=== PATIENT | female | born 1940 | race Caucasian/White ===

== ENCOUNTER 2016-04-16 11:45 | Inpatient (IN) | payer MEDICARE ==
[~2016-04-16] VITALS: Ht 160 cm; Wt 100.7 kg
--- NOTE | 2016-04-16 13:44 | PHYS DOC ---
Past Medical History Past Medical History: Cancer, High Cholesterol, Hypertension, Other Additional Past Medical Histor: endometriosis, uterine cancer Past Surgical History: Cholecystectomy, Hysterectomy, Knee Replacement, Other Additional Past Surgical Histo: gastric sleeve, left breast cyst Alcohol Use: None Drug Use: None Adult General Chief Complaint Chief Complaint: LOWER EXTREMITY SWELLING [facility] This is a 75-year-old female who presents with a wound to her right lower tibial area that she states happened on Tuesday after her discharge her head into the leg. She was seen by her primary care doctor and given an injection of lincomycin as well as Keflex 500 mg 4 times a day but the patient states the redness and swelling and pain has worsened despite taking this. She went back in her primary care doctor and the primary care doctor advised her to come into the ER for IV antibiotics. She denies any other associated symptoms. She denies any fever or chills. She denies any shortness of breath or chest pain. Patient is speaking in complete sentences at this time and is in no acute distress. Pt states she has noted some purulent drainage from the wound site. Review of Systems Review of Systems Constitutional: Denies fever or chills [] Eyes: Denies change in visual acuity, redness, or eye pain [] HENT: Denies nasal congestion or sore throat [] Respiratory: Denies cough or shortness of breath [] Cardiovascular: No additional information not addressed in HPI [] GI: Denies abdominal pain, nausea, vomiting, bloody stools or diarrhea [] : Denies dysuria or hematuria [] Musculoskeletal: Denies back pain or joint pain [] Integument: Denies rash, has skin lesions [] Neurologic: Denies headache, focal weakness or sensory changes [] Endocrine: Denies polyuria or polydipsia [] Current Medications Current Medications Physical Exam Physical Exam Constitutional: Well developed, well nourished, no acute distress, non-toxic appearance. [] HENT: Normocephalic, atraumatic, bilateral external ears normal, oropharynx moist, no oral exudates, nose normal. [] Eyes: PERRLA, EOMI, conjunctiva normal, no discharge. [] Neck: Normal range of motion, no tenderness, supple, no stridor. [] Cardiovascular:Heart rate regular rhythm, no murmur [] Lungs & Thorax: Bilateral breath sounds clear to auscultation [] Abdomen: Bowel sounds normal, soft, no tenderness, no masses, no pulsatile masses. [] Skin: Warm, dry, area of cellulitis with a wound to the anterior tibial surface that extends upward to the mid-tibial surface, no rash. [] Back: No tenderness, no CVA tenderness. [] Extremities: Moderate tenderness to the right tibial surface with an area of erythema and warmth c/w with cellulitis, no cyanosis, no clubbing, ROM intact, no edema. [] Neurologic: Alert and oriented X 3, normal motor function, normal sensory function, no focal deficits noted. [] Psychologic: Affect normal, judgement normal, mood normal. [] Current Patient Data Vital Signs Vital Signs Date Time Temp Pulse Resp B/P Pulse Ox O2 Delivery O2 Flow Rate FiO2 04/16/16 13:06 98.0 75 20 137/78 99 Room Air 98.0 Lab Values Laboratory Tests Test 04/16/16 13:30 White Blood Count 6.0x10^3/uL (4.0-11.0) Red Blood Count 3.92x10^6/uL (3.50-5.40) Hemoglobin 11.8g/dL (12.0-15.5) L Hematocrit 35.5% (36.0-47.0) L Mean Corpuscular Volume 90fL (79-100) Mean Corpuscular Hemoglobin 30pg (25-35) Mean Corpuscular Hemoglobin Concent 33g/dL (31-37) Red Cell Distribution Width 14.0% (11.5-14.5) Platelet Count 121x10^3/uL (140-400) L Neutrophils (%) (Auto) 55% (31-73) Lymphocytes (%) (Auto) 32% (24-48) Monocytes (%) (Auto) 9% (0-9) Eosinophils (%) (Auto) 3% (0-3) Basophils (%) (Auto) 1% (0-3) Neutrophils # (Auto) 3.3x10^3uL (1.8-7.7) Lymphocytes # (Auto) 1.9x10^3/uL (1.0-4.8) Monocytes # (Auto) 0.6x10^3/uL (0.0-1.1) Eosinophils # (Auto) 0.2x10^3/uL (0.0-0.7) Basophils # (Auto) 0.1x10^3/uL (0.0-0.2) Laboratory Tests 04/16/16 13:30 EKG EKG [] Radiology/Procedures Radiology/Procedures [] Course & Med Decision Making Course & Med Decision Making Pertinent Labs and Imaging studies reviewed. (See chart for details) This 75-year-old female is presenting with a right lower tibial cellulitis will be admitted to the hospital she has failed outpatient therapy. She was started on IV vancomycin. Routine lab work was obtained that was essentially unremarkable. I discussed the need to admit the patient with the hospitalist, Dr. Fuentes, who agreed to admit the patient for IV antibiotic management and pain control. Dragon Disclaimer Dragon Disclaimer This electronic medical record was generated, in whole or in part, using a voice recognition dictation system. Departure Departure Impression: Primary Impression: Cellulitis Disposition: ADMITTED INPATIENT Admitting Physician: Dodie Martinez Condition: STABLE Referrals: CHAR AHUJA MD (PCP) GINA CASTRO DO Apr 16, 2016 13:44
[2016-04-16] MEDS ORDERED: ONDANSETRON PF 4 MG/2 ML VIAL. IV PRN (13:45)
[2016-04-16 13:46] LABS: BASO # 0.1 x10^3/uL (0.0-0.2); BASO % 1 % (0-3); EOS % 3 % (0-3); HEMATOCRIT 35.5 % (36.0-47.0); HEMOGLOBIN 11.8 g/dL (12.0-15.5); LYMPH # 1.9 x10^3/uL (1.0-4.8); LYMPH % 32 % (24-48); MEAN CORPUSCULAR HEMOGLOBIN 30 pg (25-35); MEAN CORPUSCULAR HGB CONC 33 g/dL (31-37); MEAN CORPUSCULAR VOLUME 90 fL (79-100); MONO % 9 % (0-9); NEUT % 55 % (31-73); PLATELET COUNT 121 x10^3/uL (140-400); RED BLOOD COUNT 3.92 x10^6/uL (3.50-5.40)
[2016-04-16] MEDS: IV NORMAL SALINE 1000ML BAG 1,000 ML IV SCH (13:59)
--- NOTE | 2016-04-16 14:04 | ACF ---
Admission Forms Criteria CELLULITIS Clinical Indications for Admission to Inpatient Care (Place 'X' for any and all applicable criteria): Admission is indicated for ANY ONE of the following(1)(2)(3)(4)(5): [X]I. Limb-threatening infection [ ]II. High-risk comorbid condition as indicated by ANY ONE of the following: [ ]a) Uncontrolled diabetes (eg, HbA1c greater than 10% (0.1)) [ ]b) Cirrhosis [ ]c) Neutropenia [ ]d) Asplenia [ ]e) Immunosuppression [ ]f) Symptomatic heart failure [ ]III. Failure of outpatient therapy as indicated by ALL of the following: [ ]a) Progression or no improvement after adequate trial (minimum of 48 hours, with longer period for stable lower extremity infection) [ ]b) Adequate antibiotic regimen as indicated by use of ANY ONE of the following: [ ]i) First-generation cephalosporin (e.g., cephalexin) [ ]ii) Antistaphylococcal penicillin (e.g., dicloxacillin) [ ]iii) Penicillin-allergic patient regimen (clindamycin, extended-spectrum fluoroquinolone, or doxycycline) [ ]iv) Resistant organism (eg, methicillin-resistant Staphylococcus aureus) regimen (6) [ ]c) Outpatient intravenous therapy regimen is not appropriate due to ANY ONE of the following. (7)(8)(9)(10): [ ]i) It was tried and was not successful (eg, progression of infection). [ ]ii) It is not available or cannot be arranged in a clinically appropriate time frame (e.g., the next day). [ ]iii) Clinical presentation (eg, acuity of infection, rapidity of progression, confirmed or suspected bacteremia) is judged to require ALL of the following: [ ]1) Immediate initiation of intravenous therapy ( eg, cannot wait for next day) [ ]2) Intensity of patient monitoring and observation (eg, vital sign measurement, checks for infection progression) that cannot be provided at other than inpatient level of care [ ]IV. Mental status changes [ ]V. Bacteremia [ ]. Hemodynamic instability [ ]VII. Suspected necrotizing soft tissue infection (e.g., gas in tissue)(11)( 12) [ ]VIII. Orbital infection (13)(14) [ ]IX. Associated surgical procedure (e.g., abscess drainage, debridement) not amenable to outpatient, emergency department, or observation care [ ]X. Cutaneous gangrene [ ]XI. High fever (temperature greater than 39.5 degrees C (103.1 degrees F) (oral)) not responsive to outpatient, emergency department, or observation care therapy [ ]XIII. Inpatient admission required rather than observation care (Also use Cellulitis: Observation Care as appropriate) because of ANY ONE of the following : [ ]a) Periorbital or perineal infection that is severe or worsening [ ]b) Severe pain requiring acute inpatient management [ ]c) IV fluid to replace significant ongoing (e.g., for over 24 hours) losses (greater than 3L/m2 per day) [ ]d) Compartment syndrome monitoring (17) [ ]e) Strict or protective (eg, laminar flow) isolation [ ]f) Urgent debridement or skin grafting [ ]g) Bone or joint debridement [ ]h) Immediate inpatient surgery [ ]i) Other condition, treatment or monitoring requiring inpatient admission Extended stay beyond goal length of stay may be needed for (1)(18): [ ]a) Necrotizing soft tissue infection or fasciitis [ ]b) Gram-negative infection [ ]c) Methicillin-resistant Staphylococcal aureus (MRSA) infection [ ]d) Peripheral venous insufficiency with cellulitis [ ]e) Extensive edema [ ]f) Sepsis or continued Hemodynamic instability [ ]g) Continued high fever or mental status change [ ]h) Bacteremia [ ]i) Active serious comorbid conditions ( eg, heart failure, renal insufficiency) The original [employer] content created by [employer] has been revised. The portions of the content which have been revised are identified through the use of italic text or in bold, and [facility] has neither reviewed nor approved the modified material. All other unmodified content is copyright [facility] Please see references footnoted in the original [facility] edition 2016 Admission Criteria Met?: Yes THANG SCHMITT Apr 16, 2016 14:04
[2016-04-16] MEDS ORDERED: MULT-208 PO (15:00)
[2016-04-16] MEDS ORDERED: FOLI1TAB16 PO (15:00)
[2016-04-16] MEDS ORDERED: VANCOMYCIN 2 GM in IV NORMAL SALINE 500ML BAG 500 ML IV ONE (15:00)
[2016-04-16] MEDS ORDERED: CEPH-264 PO (15:00)
[2016-04-16] MEDS ORDERED: SILV20CR4 TP (15:00)
[2016-04-16] MEDS ORDERED: OMEG1CAP38 PO (15:00)
[2016-04-16] MEDS ORDERED: GARL1CAP PO (15:00)
[2016-04-16 15:13] LABS: CALCIUM 8.9 mg/dL (8.5-10.1); CREATININE 0.8 mg/dL (0.6-1.0); GFR 70.3; POTASSIUM 3.6 mmol/L (3.5-5.1)
[2016-04-16 15:22] VITALS: BP 130/75
[2016-04-16] MEDS: CEFTRIAXONE SODIUM 1 GM in IV NORMAL SALINE 50ML 50 ML IV SCH (15:58)
[2016-04-16] MEDS: VANCOMYCIN PER PHARMACY MC PRN (18:40)
[2016-04-16 19:00] VITALS: BP 160/81
[2016-04-16] MEDS: VANCOMYCIN 1.5 GM in IV NORMAL SALINE 500ML BAG 500 ML IV SCH (19:27)
[2016-04-16 22:37] VITALS: BP 144/67
[2016-04-17] MEDS: IV NORMAL SALINE 1000ML BAG 1,000 ML IV SCH ×2 (01:12→09:36)
--- NOTE | 2016-04-17 02:16 | HP ---
ADMIT DATE: 04/16/2016 CHIEF COMPLAINT: Lower extremity swelling and pain and erythema. HISTORY OF PRESENT ILLNESS: The patient is a pleasant 75-year-old female who has chronic cellulitis of both lower extremities intermittently. Apparently, within the past week or so, she hit the right lower extremity with a bump on a supervisor incising. Now the lower extremities are inflamed, it is red and swollen. She has got pain. Her primary care doctor tried some outpatient antibiotics, . I discussed the case with the ER physician. We are going to admit the patient and consult Infectious Disease and started on IV antibiotics. PAST MEDICAL HISTORY: Chronic cellulitis, hyperlipidemia, hypertension, endometriosis, uterine cancer, cholecystectomy, hysterectomy, knee replacement, gastric sleeve, left breast cyst. ALLERGIES: None. FAMILY HISTORY: Diabetes. SOCIAL HISTORY: She does not drink, smoke or take drugs. MEDICATIONS: Reviewed, please refer to the MRAD. REVIEW OF SYSTEMS: GENERAL: No history of weight change, weakness or fevers. SKIN: No bruising, hair changes or rashes. EYES: No blurred, double or loss of vision. NOSE AND THROAT: No history of nosebleeds, hoarseness or sore throat. HEART: No history of palpitations, chest pain or shortness of breath on exertion. LUNGS: Denies cough, hemoptysis, wheezing or shortness of breath. GASTROINTESTINAL: Denies changes in appetite, nausea, vomiting, diarrhea or constipation. GENITOURINARY: No history of frequency, urgency, hesitancy or nocturia. NEUROLOGIC: Denies history of numbness, tingling, tremor or weakness. PSYCHIATRIC: No history of panic, anxiety or depression. ENDOCRINE: No history of heat or cold intolerance, polyuria or polydipsia. EXTREMITIES: She complains of pain and swelling and erythema of the right lower extremity. PHYSICAL EXAMINATION: VITAL SIGNS: Temperature afebrile, pulse 80, respirations 18, blood pressure , O2 sat 99% on room air. GENERAL: She is alert, cooperative. HEART: Normal S1, S2. LUNGS: Clear. ABDOMEN: Soft, obese. EXTREMITIES: The right lower extremity has impressive cellulitis from the mid tibia down to the ankle. There is a large somewhat gaping wound about 1.5 cm across from where she struck it on the supervisor incising. ENDOCRINE: No thyromegaly. LYMPHATICS: No cervical nodes. HEMATOPOIETIC: No bruising. LABORATORY DATA: White count 6, hemoglobin 12, platelets 121. Electrolytes are pending. ASSESSMENT AND PLAN: [id number] cellulitis after traumatic injury of the right lower extremity. The patient is being admitted. We will start IV vancomycin. Consult Infectious Disease. Continue home medicines, PT, OT, frequent labs, p.r.n. pain meds. BRIDGETT DIAZ DO DR: JALEEL/jessica JOB#: [id number] / [id number]
[2016-04-17 02:51] VITALS: BP 143/70
[2016-04-17 05:17] LABS: BASO % 1 % (0-3); EOS % 4 % (0-3); HEMATOCRIT 33.7 % (36.0-47.0); HEMOGLOBIN 11.2 g/dL (12.0-15.5); LYMPH # 1.7 x10^3/uL (1.0-4.8); LYMPH % 40 % (24-48); MEAN CORPUSCULAR HEMOGLOBIN 30 pg (25-35); MEAN CORPUSCULAR HGB CONC 33 g/dL (31-37); MEAN CORPUSCULAR VOLUME 90 fL (79-100); MONO % 10 % (0-9); NEUT % 46 % (31-73); PLATELET COUNT 106 x10^3/uL (140-400); RED BLOOD COUNT 3.72 x10^6/uL (3.50-5.40); RED CELL DISTRIBUTION WIDTH 14.1 % (11.5-14.5); WHITE BLOOD COUNT 4.3 x10^3/uL (4.0-11.0)
[2016-04-17 05:38] LABS: CALCIUM 8.3 mg/dL (8.5-10.1); CREATININE 0.6 mg/dL (0.6-1.0); POTASSIUM 3.5 mmol/L (3.5-5.1)
[2016-04-17 07:00] VITALS: BP 129/66
[2016-04-17] MEDS ORDERED: ONDANSETRON PF 4 MG/2 ML VIAL. IV PRN (08:56)
[2016-04-17] MEDS ORDERED: ACETAMINOPHEN 500 MG TABLET PO PRN (09:00)
[2016-04-17] MEDS: silver sulfADIAZINE 1% CREAM 25GM TUBE. TP SCH (09:00)
[2016-04-17] MEDS: FOLIC ACID 1 MG TABLET PO SCH (09:51)
[2016-04-17] MEDS: OMEGA-3 FATTY ACIDS/FISH OIL 1,000 MG CAPSULE. PO SCH (09:51)
[2016-04-17] MEDS: MULTIVITAMIN with MINERAL TABLET. PO SCH (09:51)
[2016-04-17 10:49] VITALS: BP 125/61
--- NOTE | 2016-04-17 11:48 | PDOC ---
PROGRESS NOTES Chief Complaint Chief Complaint 1. 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 Chronic lymphedema 3. Cellulitis R leg sec to above 4. HTN, obesity, NON diabetic History of Present Illness History of Present Illness Some itchy reaction to vanco last night On IV rocephin NO white ct, no fever Intact sensation to legs BS ok - non diabetic Wound inspected - deep, cream and dressing applies- minimal blood, non foul smelling drainage PLAN: CBC cristobal Check ESR COnt iV rocpehin Check cx and gram stain of wound ADd OT for lymphedema Keep legs elevated Dw pt May add scheduled NSAID Vitals Vitals Vital Signs Date Time Temp Pulse Resp B/P Pulse Ox O2 Delivery O2 Flow Rate FiO2 04/17/16 10:49 98.1 79 18 125/61 95 Room Air 98.1 Labs LABS Laboratory Tests Test 04/16/16 13:30 04/16/16 14:55 04/17/16 03:50 White Blood Count 6.0x10^3/uL (4.0-11.0) 4.3x10^3/uL (4.0-11.0) Red Blood Count 3.92x10^6/uL (3.50-5.40) 3.72x10^6/uL (3.50-5.40) Hemoglobin 11.8g/dL (12.0-15.5) 11.2g/dL (12.0-15.5) Hematocrit 35.5% (36.0-47.0) 33.7% (36.0-47.0) Mean Corpuscular Volume 90fL (79-100) 90fL (79-100) Mean Corpuscular Hemoglobin 30pg (25-35) 30pg (25-35) Mean Corpuscular Hemoglobin Concent 33g/dL (31-37) 33g/dL (31-37) Red Cell Distribution Width 14.0% (11.5-14.5) 14.1% (11.5-14.5) Platelet Count 121x10^3/uL (140-400) 106x10^3/uL (140-400) Neutrophils (%) (Auto) 55% (31-73) 46% (31-73) Lymphocytes (%) (Auto) 32% (24-48) 40% (24-48) Monocytes (%) (Auto) 9% (0-9) 10% (0-9) Eosinophils (%) (Auto) 3% (0-3) 4% (0-3) Basophils (%) (Auto) 1% (0-3) 1% (0-3) Neutrophils # (Auto) 3.3x10^3uL (1.8-7.7) 2.0x10^3uL (1.8-7.7) Lymphocytes # (Auto) 1.9x10^3/uL (1.0-4.8) 1.7x10^3/uL (1.0-4.8) Monocytes # (Auto) 0.6x10^3/uL (0.0-1.1) 0.4x10^3/uL (0.0-1.1) Eosinophils # (Auto) 0.2x10^3/uL (0.0-0.7) 0.2x10^3/uL (0.0-0.7) Basophils # (Auto) 0.1x10^3/uL (0.0-0.2) 0.0x10^3/uL (0.0-0.2) Sodium Level 145mmol/L (136-145) 145mmol/L (136-145) Potassium Level 3.6mmol/L (3.5-5.1) 3.5mmol/L (3.5-5.1) Chloride Level 107mmol/L (98-107) 109mmol/L (98-107) Carbon Dioxide Level 29mmol/L (21-32) 26mmol/L (21-32) Anion Gap 9 (6-14) 10 (6-14) Blood Urea Nitrogen 15mg/dL (7-20) 11mg/dL (7-20) Creatinine 0.8mg/dL (0.6-1.0) 0.6mg/dL (0.6-1.0) Estimated GFR (Cockcroft-Gault) 70.3 98.0 Glucose Level 92mg/dL (70-99) 103mg/dL (70-99) Calcium Level 8.9mg/dL (8.5-10.1) 8.3mg/dL (8.5-10.1) Review of Systems Review of Systems no fevers, leg edema, minimal pain Assessment and Plan Assessmemt and Plan Problems Medical Problems: (1) Cellulitis Status: Acute Problems: Comment Review of Relevant I have reviewed the following items jd (where applicable) has been applied. Labs Laboratory Tests Test 04/16/16 13:30 04/16/16 14:55 04/17/16 03:50 White Blood Count 6.0x10^3/uL (4.0-11.0) 4.3x10^3/uL (4.0-11.0) Red Blood Count 3.92x10^6/uL (3.50-5.40) 3.72x10^6/uL (3.50-5.40) Hemoglobin 11.8g/dL (12.0-15.5) 11.2g/dL (12.0-15.5) Hematocrit 35.5% (36.0-47.0) 33.7% (36.0-47.0) Mean Corpuscular Volume 90fL (79-100) 90fL (79-100) Mean Corpuscular Hemoglobin 30pg (25-35) 30pg (25-35) Mean Corpuscular Hemoglobin Concent 33g/dL (31-37) 33g/dL (31-37) Red Cell Distribution Width 14.0% (11.5-14.5) 14.1% (11.5-14.5) Platelet Count 121x10^3/uL (140-400) 106x10^3/uL (140-400) Neutrophils (%) (Auto) 55% (31-73) 46% (31-73) Lymphocytes (%) (Auto) 32% (24-48) 40% (24-48) Monocytes (%) (Auto) 9% (0-9) 10% (0-9) Eosinophils (%) (Auto) 3% (0-3) 4% (0-3) Basophils (%) (Auto) 1% (0-3) 1% (0-3) Neutrophils # (Auto) 3.3x10^3uL (1.8-7.7) 2.0x10^3uL (1.8-7.7) Lymphocytes # (Auto) 1.9x10^3/uL (1.0-4.8) 1.7x10^3/uL (1.0-4.8) Monocytes # (Auto) 0.6x10^3/uL (0.0-1.1) 0.4x10^3/uL (0.0-1.1) Eosinophils # (Auto) 0.2x10^3/uL (0.0-0.7) 0.2x10^3/uL (0.0-0.7) Basophils # (Auto) 0.1x10^3/uL (0.0-0.2) 0.0x10^3/uL (0.0-0.2) Sodium Level 145mmol/L (136-145) 145mmol/L (136-145) Potassium Level 3.6mmol/L (3.5-5.1) 3.5mmol/L (3.5-5.1) Chloride Level 107mmol/L (98-107) 109mmol/L (98-107) Carbon Dioxide Level 29mmol/L (21-32) 26mmol/L (21-32) Anion Gap 9 (6-14) 10 (6-14) Blood Urea Nitrogen 15mg/dL (7-20) 11mg/dL (7-20) Creatinine 0.8mg/dL (0.6-1.0) 0.6mg/dL (0.6-1.0) Estimated GFR (Cockcroft-Gault) 70.3 98.0 Glucose Level 92mg/dL (70-99) 103mg/dL (70-99) Calcium Level 8.9mg/dL (8.5-10.1) 8.3mg/dL (8.5-10.1) Laboratory Tests Test 04/16/16 13:30 04/16/16 14:55 04/17/16 03:50 White Blood Count 6.0x10^3/uL (4.0-11.0) 4.3x10^3/uL (4.0-11.0) Red Blood Count 3.92x10^6/uL (3.50-5.40) 3.72x10^6/uL (3.50-5.40) Hemoglobin 11.8g/dL (12.0-15.5) 11.2g/dL (12.0-15.5) Hematocrit 35.5% (36.0-47.0) 33.7% (36.0-47.0) Mean Corpuscular Volume 90fL (79-100) 90fL (79-100) Mean Corpuscular Hemoglobin 30pg (25-35) 30pg (25-35) Mean Corpuscular Hemoglobin Concent 33g/dL (31-37) 33g/dL (31-37) Red Cell Distribution Width 14.0% (11.5-14.5) 14.1% (11.5-14.5) Platelet Count 121x10^3/uL (140-400) 106x10^3/uL (140-400) Neutrophils (%) (Auto) 55% (31-73) 46% (31-73) Lymphocytes (%) (Auto) 32% (24-48) 40% (24-48) Monocytes (%) (Auto) 9% (0-9) 10% (0-9) Eosinophils (%) (Auto) 3% (0-3) 4% (0-3) Basophils (%) (Auto) 1% (0-3) 1% (0-3) Neutrophils # (Auto) 3.3x10^3uL (1.8-7.7) 2.0x10^3uL (1.8-7.7) Lymphocytes # (Auto) 1.9x10^3/uL (1.0-4.8) 1.7x10^3/uL (1.0-4.8) Monocytes # (Auto) 0.6x10^3/uL (0.0-1.1) 0.4x10^3/uL (0.0-1.1) Eosinophils # (Auto) 0.2x10^3/uL (0.0-0.7) 0.2x10^3/uL (0.0-0.7) Basophils # (Auto) 0.1x10^3/uL (0.0-0.2) 0.0x10^3/uL (0.0-0.2) Sodium Level 145mmol/L (136-145) 145mmol/L (136-145) Potassium Level 3.6mmol/L (3.5-5.1) 3.5mmol/L (3.5-5.1) Chloride Level 107mmol/L (98-107) 109mmol/L (98-107) Carbon Dioxide Level 29mmol/L (21-32) 26mmol/L (21-32) Anion Gap 9 (6-14) 10 (6-14) Blood Urea Nitrogen 15mg/dL (7-20) 11mg/dL (7-20) Creatinine 0.8mg/dL (0.6-1.0) 0.6mg/dL (0.6-1.0) Estimated GFR (Cockcroft-Gault) 70.3 98.0 Glucose Level 92mg/dL (70-99) 103mg/dL (70-99) Calcium Level 8.9mg/dL (8.5-10.1) 8.3mg/dL (8.5-10.1) Medications Current Medications Ondansetron HCl 4 mg 4 mg PRN Q8HRS PRN IV NAUSEA/VOMITING; Start 04/16/16 at 13 :45; Stop 04/17/16 at 08:58; Status DC Sodium Chloride (Iv Sodium Chloride 0.9% 1000ml Bag) 1,000 ml @ 100 mls/hr Q10H IV Last administered on 04/17/16 09:36; Start 04/16/16 at 13:36; Stop at 13:35 Vancomycin HCl 1 each 1 each PRN DAILY PRN MC SEE COMMENTS Last administered on 04/16/16 18:40; Start 04/16/16 at 13:45 Vancomycin HCl 2 gm/Sodium Chloride 500 ml @ 250 mls/hr 1X ONCE IV Last administered on 04/16/16 15:58; Start 04/16/16 at 15:00; Stop 04/16/16 at 16:59; Status DC Ceftriaxone Sodium 1 gm/ Sodium Chloride 50 ml @ 100 mls/hr Q24H IV Last administered on 04/16/16 15:58; Start 04/16/16 at 15:00 Vancomycin HCl/ Sodium Chloride (Iv Sodium Chloride 0.9% 500ml Bag) 500 ml @ 250 mls/hr Q24H IV ; Start 04/17/16 at 16:00 Vancomycin HCl 1 each 1X ONCE MC ; Start 04/18/16 at 15:30; Stop 04/18/16 at 15: 31 Ondansetron HCl (Zofran) 4 mg PRN Q6HRS PRN IV NAUSEA/VOMITING; Start 04/17/16 at 08:56 Acetaminophen (Tylenol) 500 mg PRN Q6HRS PRN PO MILD PAIN / TEMP; Start at 09:00 Folic Acid (Folic Acid) 1 mg DAILY PO Last administered on 04/17/16 09:51; Start 04/17/16 at 09:00 Silver Sulfadiazine (Silvadene) 1 carlos DAILY TP Last administered on 04/17/16 09 :00; Start 04/17/16 at 09:00 Multivitamins/ Calcium (Thera M Plus) 1 tab DAILY PO Last administered on 09:51; Start 04/17/16 at 09:00 Fish Oil (Fish Oil) 1,000 mg DAILY PO Last administered on 04/17/16 09:51; Start 04/17/16 at 09:00 Active Scripts Active Reported Garlic 1 Mg Capsule Unknown Dose PO DAILY Gardena 3 Fish Oil Softgel (Gardena-3 Fatty Acids/Fish Oil) 1 Each Capsule.dr 1 Each PO DAILY Folic Acid 1 Mg Tablet 1 Tab PO DAILY Multi-Day Vitamins (Multivitamin) 1 Each Tablet 1 Tab PO DAILY Silvadene (Silver Sulfadiazine) 20 Gm Cream..g. 1 Carlos TP DAILY Keflex (Cephalexin) 500 Mg Capsule 500 Mg PO QID Vitals/I & O Vital Sign - Last 24 Hours 04/16/16 04/16/16 04/16/16 04/16/16 13:06 14:03 15:22 19:00 Temp 98.0 97.7 97.9 98.0 97.7 97.9 Pulse 75 67 71 91 Resp 20 16 17 20 B/P 137/78 134/61 130/75 160/81 Pulse Ox 99 97 97 98 O2 Delivery Room Air Room Air Room Air Room Air 04/16/16 04/16/16 04/17/16 04/17/16 20:04 22:37 02:51 07:00 Temp 97.7 98.0 98.1 97.7 98.0 98.1 Pulse 73 80 85 Resp 18 20 18 B/P 144/67 143/70 129/66 Pulse Ox 100 97 94 O2 Delivery Room Air Room Air Room Air Room Air 04/17/16 04/17/16 08:00 10:49 Temp 98.1 98.1 Pulse 79 Resp 18 B/P 125/61 Pulse Ox 95 O2 Delivery Room Air Room Air Intake and Output 04/16/16 04/16/16 04/17/16 15:00 23:00 07:00 Intake Total 240 ml 200 ml Balance 240 ml 200 ml ORVILLE ADAMS MD Apr 17, 2016 11:48
[2016-04-17] MEDS: CELECOXIB 100 MG CAPSULE PO SCH ×2 (12:48→20:32)
--- NOTE | 2016-04-17 12:57 | PDOC ---
Infectious Disease Note ROS ROS Vital Sign Vital Signs Vital Signs Date Time Temp Pulse Resp B/P Pulse Ox O2 Delivery O2 Flow Rate FiO2 04/17/16 10:49 98.1 79 18 125/61 95 Room Air 98.1 Labs Lab Laboratory Tests Test 04/16/16 13:30 04/16/16 14:55 04/17/16 03:50 White Blood Count 6.0x10^3/uL (4.0-11.0) 4.3x10^3/uL (4.0-11.0) Red Blood Count 3.92x10^6/uL (3.50-5.40) 3.72x10^6/uL (3.50-5.40) Hemoglobin 11.8g/dL (12.0-15.5) 11.2g/dL (12.0-15.5) Hematocrit 35.5% (36.0-47.0) 33.7% (36.0-47.0) Mean Corpuscular Volume 90fL (79-100) 90fL (79-100) Mean Corpuscular Hemoglobin 30pg (25-35) 30pg (25-35) Mean Corpuscular Hemoglobin Concent 33g/dL (31-37) 33g/dL (31-37) Red Cell Distribution Width 14.0% (11.5-14.5) 14.1% (11.5-14.5) Platelet Count 121x10^3/uL (140-400) 106x10^3/uL (140-400) Neutrophils (%) (Auto) 55% (31-73) 46% (31-73) Lymphocytes (%) (Auto) 32% (24-48) 40% (24-48) Monocytes (%) (Auto) 9% (0-9) 10% (0-9) Eosinophils (%) (Auto) 3% (0-3) 4% (0-3) Basophils (%) (Auto) 1% (0-3) 1% (0-3) Neutrophils # (Auto) 3.3x10^3uL (1.8-7.7) 2.0x10^3uL (1.8-7.7) Lymphocytes # (Auto) 1.9x10^3/uL (1.0-4.8) 1.7x10^3/uL (1.0-4.8) Monocytes # (Auto) 0.6x10^3/uL (0.0-1.1) 0.4x10^3/uL (0.0-1.1) Eosinophils # (Auto) 0.2x10^3/uL (0.0-0.7) 0.2x10^3/uL (0.0-0.7) Basophils # (Auto) 0.1x10^3/uL (0.0-0.2) 0.0x10^3/uL (0.0-0.2) Sodium Level 145mmol/L (136-145) 145mmol/L (136-145) Potassium Level 3.6mmol/L (3.5-5.1) 3.5mmol/L (3.5-5.1) Chloride Level 107mmol/L (98-107) 109mmol/L (98-107) Carbon Dioxide Level 29mmol/L (21-32) 26mmol/L (21-32) Anion Gap 9 (6-14) 10 (6-14) Blood Urea Nitrogen 15mg/dL (7-20) 11mg/dL (7-20) Creatinine 0.8mg/dL (0.6-1.0) 0.6mg/dL (0.6-1.0) Estimated GFR (Cockcroft-Gault) 70.3 98.0 Glucose Level 92mg/dL (70-99) 103mg/dL (70-99) Calcium Level 8.9mg/dL (8.5-10.1) 8.3mg/dL (8.5-10.1) Objective Assessment 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 -f/u PCP on April 14. Cellulitis RLE -failed OP abx Chronic swelling of legs Obesity Plan Plan of Care Lulu and Stacey Await cultures Leg elevation Local wound care Thank you [id number] Attending Co-Sign The patient was seen and interviewed as well as examined at the bedside. The chart was reviewed. The case was discussed. Agree with the plan of care. JESSICA GARY APRN Apr 17, 2016 12:36 MANUELA NORRIS MD Apr 17, 2016 15:25
[2016-04-17] MEDS: CEFTRIAXONE SODIUM 1 GM in IV NORMAL SALINE 50ML 50 ML IV SCH (14:34)
[2016-04-17] MEDS: VANCOMYCIN PER PHARMACY MC PRN (14:52)
[2016-04-17 15:00] VITALS: BP 118/61
[2016-04-17 19:59] VITALS: BP 130/67
[2016-04-17 23:44] VITALS: BP 128/59
[2016-04-18 03:59] VITALS: BP 126/67
[2016-04-18 05:29] LABS: BASO % 1 % (0-3); EOS % 5 % (0-3); HEMATOCRIT 32.7 % (36.0-47.0); HEMOGLOBIN 10.9 g/dL (12.0-15.5); LYMPH # 1.3 x10^3/uL (1.0-4.8); LYMPH % 34 % (24-48); MEAN CORPUSCULAR HEMOGLOBIN 30 pg (25-35); MEAN CORPUSCULAR HGB CONC 33 g/dL (31-37); MEAN CORPUSCULAR VOLUME 90 fL (79-100); MONO % 9 % (0-9); NEUT % 51 % (31-73); PLATELET COUNT 109 x10^3/uL (140-400); RED BLOOD COUNT 3.64 x10^6/uL (3.50-5.40); RED CELL DISTRIBUTION WIDTH 13.9 % (11.5-14.5)
[2016-04-18 07:00] VITALS: BP 150/90
[2016-04-18] MEDS: FOLIC ACID 1 MG TABLET PO SCH (09:18)
[2016-04-18] MEDS: CELECOXIB 100 MG CAPSULE PO SCH ×2 (09:18→20:35)
[2016-04-18] MEDS: OMEGA-3 FATTY ACIDS/FISH OIL 1,000 MG CAPSULE. PO SCH (09:18)
[2016-04-18] MEDS: MULTIVITAMIN with MINERAL TABLET. PO SCH (09:18)
[2016-04-18] MEDS: silver sulfADIAZINE 1% CREAM 25GM TUBE. TP SCH (09:20)
--- NOTE | 2016-04-18 09:39 | PDOC ---
Infectious Disease Note Subjective Subjective Comfortable Feels leg is looking better ROS ROS GEN: Denies fevers, chills, sweats CV: Denies chest pain RESP: Denies shortness of air, cough GI: Denies n/v/d Vital Sign Vital Signs Vital Signs Date Time Temp Pulse Resp B/P Pulse Ox O2 Delivery O2 Flow Rate FiO2 04/18/16 07:00 98.1 77 18 150/90 100 Room Air 98.1 Physical Exam PHYSICAL EXAM GENERAL: Propped up in bed, NAD LUNGS: Clear HEART: S1S2, no gallop, no murmur ABD: Obese, BS present, soft, NT EXT: BLE edema. RLE wound-red, minimal drainage. DP palpable HYPERBARIC TECH: Alert, oriented x 3, no focal neurologic deficit SKIN: No rash IV: ok Labs Lab Laboratory Tests Test 04/18/16 05:05 White Blood Count 4.0x10^3/uL (4.0-11.0) Red Blood Count 3.64x10^6/uL (3.50-5.40) Hemoglobin 10.9g/dL (12.0-15.5) Hematocrit 32.7% (36.0-47.0) Mean Corpuscular Volume 90fL (79-100) Mean Corpuscular Hemoglobin 30pg (25-35) Mean Corpuscular Hemoglobin Concent 33g/dL (31-37) Red Cell Distribution Width 13.9% (11.5-14.5) Platelet Count 109x10^3/uL (140-400) Neutrophils (%) (Auto) 51% (31-73) Lymphocytes (%) (Auto) 34% (24-48) Monocytes (%) (Auto) 9% (0-9) Eosinophils (%) (Auto) 5% (0-3) Basophils (%) (Auto) 1% (0-3) Neutrophils # (Auto) 2.0x10^3uL (1.8-7.7) Lymphocytes # (Auto) 1.3x10^3/uL (1.0-4.8) Monocytes # (Auto) 0.4x10^3/uL (0.0-1.1) Eosinophils # (Auto) 0.2x10^3/uL (0.0-0.7) Basophils # (Auto) 0.0x10^3/uL (0.0-0.2) Erythrocyte Sedimentation Rate 50 (0-25) Micro GRAM STAIN Final WBCS NONE SEEN GRAM POSITIVE COCCI OCCASIONAL Objective Assessment Traumatic wound RLE, GPC -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 -f/u PCP on April 14. Cellulitis RLE. -failed OP abx Chronic swelling of legs Obesity Plan Plan of Care Vanc and Rocephin Await GPC ID Leg elevation Local wound care Sed rate 50 Attending Co-Sign The patient was seen and interviewed as well as examined at the bedside. The chart was reviewed. The case was discussed. Agree with the plan of care. JESSIAC GARY APRN Apr 18, 2016 09:39 MANUELA NORRIS MD Apr 18, 2016 13:58
[2016-04-18 11:00] VITALS: BP 126/60
--- NOTE | 2016-04-18 11:08 | CONS ---
DATE OF CONSULTATION: 04/16/2016 This is Joao Horton NP, dictating for Dr. Vineet Norris. REQUESTING PHYSICIAN: Dr. Fuentes. REASON FOR CONSULTATION: Cellulitis. HISTORY OF PRESENT ILLNESS: This patient is a 75-year-old woman with history of chronic swelling in both her legs. 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 She applied towels for pressure. She followed up with her PCP who prescribed antibiotics. However, despite the antibiotics, the area became increasingly swollen, painful and red. She was able to walk and bear weight without problem. Denies fevers, chills or sweats and she has since been admitted and is on vancomycin and ceftriaxone. ID has been asked to consult for further evaluation and antibiotic management. PAST MEDICAL HISTORY: Chronic swelling of the legs, hyperlipidemia, hypertension, uterine cancer, endometriosis, gastroesophageal reflux, glaucoma, osteoarthritis and left breast cyst. PAST SURGICAL HISTORY: Bariatric surgery in 2016, bilateral knee replacement, cholecystectomy, and hysterectomy. SOCIAL HISTORY: The patient lives at home. Nonsmoker. No history of alcohol or illicit drug use. FAMILY HISTORY: Positive for diabetes. ALLERGIES: No known drug allergies. MEDICATIONS: Vancomycin and ceftriaxone. Other medications are available and have been reviewed on the MAR. REVIEW OF SYSTEMS: The patient feels that her leg is looking better, less red and swelling. Denies pain. Denies headache, nasal/sinus congestion or sore throat. Denies cough, shortness of air or wheezing. Denies chest pain or palpitations. Denies nausea, vomiting or diarrhea. She normally has some heartburn. She watches her diet and has adjusted to change of eating habits since bariatric surgery. Denies dysuria, frequency or urgency. Denies muscle aches or joint pains. PHYSICAL EXAMINATION: GENERAL: A pleasant female, propped up in bed, in no apparent distress. VITAL SIGNS: Temperature is 98.1, blood pressure 125/61, heart rate 79, respiratory rate 18, pulse oximetry is 95% on room air. Weight 222 pounds. HEENT: Pupils equally round, reactive. Normal conjunctivae. Oral mucosa is pink and moist. NECK: Supple. LUNGS: Clear to auscultation. HEART: Normal S1 and S2. ABDOMEN: Obese, bowel sounds present, soft, nontender. EXTREMITIES: Bilateral lower extremity edema greater on the right. Distal pulses palpable. No cyanosis. SKIN: Without rash. Warm to touch. Left lower extremity with mild redness that fades with leg elevation. There is a wound to the right lower anterior leg with area redness and swelling. Minimal drainage. NEUROLOGIC: Alert and oriented x 3. Moves all extremities. LABORATORY DATA: WBC 4.3, hemoglobin 11.2, platelet count 106,000. Sodium 145, potassium 3.5, creatinine 0.6, BUN 11, glucose 103. Anaerobic/aerobic wound culture pending. Sed rate is pending. No imaging. IMPRESSION: 1. Traumatic wound of right lower extremity. 2. Cellulitis of right lower extremity. 3. Chronic swelling of legs. 4. Obesity. PLAN: Continue the antibiotics. We will follow up on cultures. Leg elevation. Local wound care. Thank you, Dr. Fuentes, for asking us to participate in this patient's care. Should you have further questions or concerns, please call. VINEET NORRIS MD DR: DELVIN/jessica JOB#: [id number] / [id number] RICA
--- NOTE | 2016-04-18 11:33 | PDOC3 ---
Discharge Summary Visit Information Date of Admission: Apr 16, 2016 Date of Discharge: Apr 18, 2016 Admitting Diagnosis Comment: 1. 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 Chronic lymphedema 3. Cellulitis R leg sec to above 4. HTN, obesity, NON diabetic 5. GPC WOUND, LEFT ISAAC Final Diagnosis Problems Medical Problems: (1) Cellulitis Status: Acute Brief Hospital Course Allergies Allergies Coded Allergies Type Severity Reaction Last Updated Verified No Known Drug Allergies 04/16/16 No Vital Signs Vital Signs Date Time Temp Pulse Resp B/P Pulse Ox O2 Delivery O2 Flow Rate FiO2 04/18/16 11:00 98.4 73 18 126/60 98 Room Air 98.4 Lab Results Laboratory Tests Test 04/16/16 13:30 04/16/16 14:55 04/17/16 03:50 04/18/16 05:05 White Blood Count 6.0x10^3/uL (4.0-11.0) 4.3x10^3/uL (4.0-11.0) 4.0x10^3/uL (4.0-11.0) Red Blood Count 3.92x10^6/uL (3.50-5.40) 3.72x10^6/uL (3.50-5.40) 3.64x10^6/uL (3.50-5.40) Hemoglobin 11.8g/dL (12.0-15.5) 11.2g/dL (12.0-15.5) 10.9g/dL (12.0-15.5) Hematocrit 35.5% (36.0-47.0) 33.7% (36.0-47.0) 32.7% (36.0-47.0) Mean Corpuscular Volume 90fL (79-100) 90fL (79-100) 90fL (79-100) Mean Corpuscular Hemoglobin 30pg (25-35) 30pg (25-35) 30pg (25-35) Mean Corpuscular Hemoglobin Concent 33g/dL (31-37) 33g/dL (31-37) 33g/dL (31-37) Red Cell Distribution Width 14.0% (11.5-14.5) 14.1% (11.5-14.5) 13.9% (11.5-14.5) Platelet Count 121x10^3/uL (140-400) 106x10^3/uL (140-400) 109x10^3/uL (140-400) Neutrophils (%) (Auto) 55% (31-73) 46% (31-73) 51% (31-73) Lymphocytes (%) (Auto) 32% (24-48) 40% (24-48) 34% (24-48) Monocytes (%) (Auto) 9% (0-9) 10% (0-9) 9% (0-9) Eosinophils (%) (Auto) 3% (0-3) 4% (0-3) 5% (0-3) Basophils (%) (Auto) 1% (0-3) 1% (0-3) 1% (0-3) Neutrophils # (Auto) 3.3x10^3uL (1.8-7.7) 2.0x10^3uL (1.8-7.7) 2.0x10^3uL (1.8-7.7) Lymphocytes # (Auto) 1.9x10^3/uL (1.0-4.8) 1.7x10^3/uL (1.0-4.8) 1.3x10^3/uL (1.0-4.8) Monocytes # (Auto) 0.6x10^3/uL (0.0-1.1) 0.4x10^3/uL (0.0-1.1) 0.4x10^3/uL (0.0-1.1) Eosinophils # (Auto) 0.2x10^3/uL (0.0-0.7) 0.2x10^3/uL (0.0-0.7) 0.2x10^3/uL (0.0-0.7) Basophils # (Auto) 0.1x10^3/uL (0.0-0.2) 0.0x10^3/uL (0.0-0.2) 0.0x10^3/uL (0.0-0.2) Sodium Level 145mmol/L (136-145) 145mmol/L (136-145) Potassium Level 3.6mmol/L (3.5-5.1) 3.5mmol/L (3.5-5.1) Chloride Level 107mmol/L (98-107) 109mmol/L (98-107) Carbon Dioxide Level 29mmol/L (21-32) 26mmol/L (21-32) Anion Gap 9 (6-14) 10 (6-14) Blood Urea Nitrogen 15mg/dL (7-20) 11mg/dL (7-20) Creatinine 0.8mg/dL (0.6-1.0) 0.6mg/dL (0.6-1.0) Estimated GFR (Cockcroft-Gault) 70.3 98.0 Glucose Level 92mg/dL (70-99) 103mg/dL (70-99) Calcium Level 8.9mg/dL (8.5-10.1) 8.3mg/dL (8.5-10.1) Erythrocyte Sedimentation Rate 50 (0-25) Laboratory Tests Test 04/18/16 05:05 White Blood Count 4.0x10^3/uL (4.0-11.0) Red Blood Count 3.64x10^6/uL (3.50-5.40) Hemoglobin 10.9g/dL (12.0-15.5) Hematocrit 32.7% (36.0-47.0) Mean Corpuscular Volume 90fL (79-100) Mean Corpuscular Hemoglobin 30pg (25-35) Mean Corpuscular Hemoglobin Concent 33g/dL (31-37) Red Cell Distribution Width 13.9% (11.5-14.5) Platelet Count 109x10^3/uL (140-400) Neutrophils (%) (Auto) 51% (31-73) Lymphocytes (%) (Auto) 34% (24-48) Monocytes (%) (Auto) 9% (0-9) Eosinophils (%) (Auto) 5% (0-3) Basophils (%) (Auto) 1% (0-3) Neutrophils # (Auto) 2.0x10^3uL (1.8-7.7) Lymphocytes # (Auto) 1.3x10^3/uL (1.0-4.8) Monocytes # (Auto) 0.4x10^3/uL (0.0-1.1) Eosinophils # (Auto) 0.2x10^3/uL (0.0-0.7) Basophils # (Auto) 0.0x10^3/uL (0.0-0.2) Erythrocyte Sedimentation Rate 50 (0-25) Brief Hospital Course Ms. Pineda is a 75 old female hurt her left isaac with a street inspector , got a wound, grew GPC, non diabetic. BEing treated with rocephin and vanc and ID involved, Awaiting identification of GPC if MRSA or MSSA or strep. 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
--- NOTE | 2016-04-18 11:34 | PDOC ---
Provider Note Provider Note GPC wound - VANc added Pt wants to go home Was on kefflex [employer] NO fevrs, no white ct ESR 50s Await GPC IDentification, then home Wait for ID rounds ORVILLE ADAMS MD Apr 18, 2016 11:34
[2016-04-18 15:00] VITALS: BP 124/53
[2016-04-18] MEDS: CEFTRIAXONE SODIUM 1 GM in IV NORMAL SALINE 50ML 50 ML IV SCH (15:16)
[2016-04-18] MEDS: VANCOMYCIN PER PHARMACY MC PRN (15:53)
[2016-04-18] MEDS: VANCOMYCIN 1.5 GM in IV NORMAL SALINE 500ML BAG 500 ML IV SCH (15:58)
[2016-04-18 19:00] VITALS: BP 132/52
[2016-04-18 23:00] VITALS: BP 124/67
[2016-04-19 03:00] VITALS: BP 126/62
[2016-04-19 07:50] VITALS: BP 141/66
[2016-04-19] MEDS: silver sulfADIAZINE 1% CREAM 25GM TUBE. TP SCH (09:00)
--- NOTE | 2016-04-19 09:01 | PDOC ---
PROGRESS NOTES Chief Complaint Chief Complaint 1.GPC wound, R isaac 2. Chronic lymphedema 3. Cellulitis R leg sec to above 4. HTN, obesity, NON diabetic History of Present Illness History of Present Illness Identification of GPC is still not yet available VAnc running NO fevers no white ct Eager to go home Await identification and speiciation./sensitivities Vitals Vitals Vital Signs Date Time Temp Pulse Resp B/P Pulse Ox O2 Delivery O2 Flow Rate FiO2 04/19/16 07:50 97.5 66 18 141/66 98 Room Air 97.5 Physical Exam General: Alert, Oriented X3, Cooperative Heart: Regular rate, Normal S1, Normal S2 Lungs: Clear Abdomen: Normal bowel sounds Extremities: No clubbing Skin: Other (T traiumatic wound, R isaac) Labs LABS Laboratory Tests Test 04/18/16 15:15 Vancomycin Level Trough 1.8mcg/mL (10.0-20.0) Vancomycin Last Dose Date 04/17/16 Vancomycin Last Dose Time 1600 Assessment and Plan Assessmemt and Plan Problems Medical Problems: (1) Cellulitis Status: Acute Problems: Comment Review of Relevant I have reviewed the following items jd (where applicable) has been applied. Labs Laboratory Tests Test 04/18/16 05:05 04/18/16 15:15 White Blood Count 4.0x10^3/uL (4.0-11.0) Red Blood Count 3.64x10^6/uL (3.50-5.40) Hemoglobin 10.9g/dL (12.0-15.5) Hematocrit 32.7% (36.0-47.0) Mean Corpuscular Volume 90fL (79-100) Mean Corpuscular Hemoglobin 30pg (25-35) Mean Corpuscular Hemoglobin Concent 33g/dL (31-37) Red Cell Distribution Width 13.9% (11.5-14.5) Platelet Count 109x10^3/uL (140-400) Neutrophils (%) (Auto) 51% (31-73) Lymphocytes (%) (Auto) 34% (24-48) Monocytes (%) (Auto) 9% (0-9) Eosinophils (%) (Auto) 5% (0-3) Basophils (%) (Auto) 1% (0-3) Neutrophils # (Auto) 2.0x10^3uL (1.8-7.7) Lymphocytes # (Auto) 1.3x10^3/uL (1.0-4.8) Monocytes # (Auto) 0.4x10^3/uL (0.0-1.1) Eosinophils # (Auto) 0.2x10^3/uL (0.0-0.7) Basophils # (Auto) 0.0x10^3/uL (0.0-0.2) Erythrocyte Sedimentation Rate 50 (0-25) Vancomycin Level Trough 1.8mcg/mL (10.0-20.0) Vancomycin Last Dose Date 04/17/16 Vancomycin Last Dose Time 1600 Laboratory Tests Test 04/18/16 15:15 Vancomycin Level Trough 1.8mcg/mL (10.0-20.0) Vancomycin Last Dose Date 04/17/16 Vancomycin Last Dose Time 1600 Microbiology 04/17/16 Anaerobic/Aerobic Culture, Resulted Pending 04/17/16 Anaerobic Culture Result 1 (MAICO), Resulted Pending 04/17/16 Aerobic Culture - Preliminary, Resulted 04/17/16 Aerobic Culture Result 1 (MAICO) - Preliminary, Resulted Medications Current Medications Ondansetron HCl 4 mg 4 mg PRN Q8HRS PRN IV NAUSEA/VOMITING; Start 04/16/16 at 13 :45; Stop 04/17/16 at 08:58; Status DC Sodium Chloride (Iv Sodium Chloride 0.9% 1000ml Bag) 1,000 ml @ 100 mls/hr Q10H IV Last administered on 04/17/16 09:36; Start 04/16/16 at 13:36; Stop at 13:35; Status DC Vancomycin HCl 1 each 1 each PRN DAILY PRN MC SEE COMMENTS Last administered on 04/18/16 15:53; Start 04/16/16 at 13:45 Vancomycin HCl 2 gm/Sodium Chloride 500 ml @ 250 mls/hr 1X ONCE IV Last administered on 04/16/16 15:58; Start 04/16/16 at 15:00; Stop 04/16/16 at 16:59; Status DC Ceftriaxone Sodium 1 gm/ Sodium Chloride 50 ml @ 100 mls/hr Q24H IV Last administered on 04/18/16 15:16; Start 04/16/16 at 15:00 Vancomycin HCl/ Sodium Chloride (Iv Sodium Chloride 0.9% 500ml Bag) 500 ml @ 250 mls/hr Q24H IV Last administered on 04/18/16 15:58; Start 04/17/16 at 16:00 Vancomycin HCl 1 each 1X ONCE MC Last administered on 04/18/16 15:30; Start at 15:30; Stop 04/18/16 at 15:31; Status DC Ondansetron HCl (Zofran) 4 mg PRN Q6HRS PRN IV NAUSEA/VOMITING; Start 04/17/16 at 08:56 Acetaminophen (Tylenol) 500 mg PRN Q6HRS PRN PO MILD PAIN / TEMP; Start at 09:00 Folic Acid (Folic Acid) 1 mg DAILY PO Last administered on 04/18/16 09:18; Start 04/17/16 at 09:00 Silver Sulfadiazine (Silvadene) 1 carlos DAILY TP Last administered on 04/18/16 09 :20; Start 04/17/16 at 09:00 Multivitamins/ Calcium (Thera M Plus) 1 tab DAILY PO Last administered on 09:18; Start 04/17/16 at 09:00 Fish Oil (Fish Oil) 1,000 mg DAILY PO Last administered on 04/18/16 09:18; Start 04/17/16 at 09:00 Celecoxib (Celebrex) 100 mg BID PO Last administered on 04/18/16 20:35; Start 04/17/16 at 12:30 Vancomycin HCl 1 each 1X ONCE MC ; Start 04/20/16 at 15:30; Stop 04/20/16 at 15: 31 Active Scripts Active Reported Garlic 1 Mg Capsule Unknown Dose PO DAILY [place] 3 Fish Oil Softgel ([place]-3 Fatty Acids/Fish Oil) 1 Each Capsule.dr 1 Each PO DAILY Folic Acid 1 Mg Tablet 1 Tab PO DAILY Multi-Day Vitamins (Multivitamin) 1 Each Tablet 1 Tab PO DAILY Silvadene (Silver Sulfadiazine) 20 Gm Cream..g. 1 Carlos TP DAILY Keflex (Cephalexin) 500 Mg Capsule 500 Mg PO QID Vitals/I & O Vital Sign - Last 24 Hours 04/18/16 04/18/16 04/18/16 04/18/16 11:00 15:00 19:00 19:55 Temp 98.4 97.9 98.0 98.4 97.9 98.0 Pulse 73 72 73 Resp 18 18 18 B/P 126/60 124/53 132/52 Pulse Ox 98 97 96 O2 Delivery Room Air Room Air Room Air Room Air 04/18/16 04/19/16 04/19/16 23:00 03:00 07:50 Temp 97.8 97.5 97.5 97.8 97.5 97.5 Pulse 66 63 66 Resp 20 18 18 B/P 124/67 126/62 141/66 Pulse Ox 95 95 98 O2 Delivery Room Air Room Air Room Air Intake and Output 04/18/16 04/18/16 04/19/16 15:00 23:00 07:00 Intake Total 875 ml 240 ml Balance 875 ml 240 ml ORVILLE ADAMS MD Apr 19, 2016 09:01
[2016-04-19] MEDS: OMEGA-3 FATTY ACIDS/FISH OIL 1,000 MG CAPSULE. PO SCH (10:17)
[2016-04-19] MEDS: MULTIVITAMIN with MINERAL TABLET. PO SCH (10:17)
[2016-04-19] MEDS: CELECOXIB 100 MG CAPSULE PO SCH (10:17)
[2016-04-19] MEDS: FOLIC ACID 1 MG TABLET PO SCH (10:18)
[2016-04-19 10:38] VITALS: BP 132/60
--- NOTE | 2016-04-19 10:53 | PDOC ---
Infectious Disease Note Subjective Subjective pt feeling better ROS ROS GEN: Denies fevers, chills, sweats HEENT: Denies blurred vision, sore throat CV: Denies chest pain RESP: Denies shortness of air, cough GI: Denies n/v/d NEURO: Denies confusion, dizziness MSK: Denies weakness, joint pain/swelling Vital Sign Vital Signs Vital Signs Date Time Temp Pulse Resp B/P Pulse Ox O2 Delivery O2 Flow Rate FiO2 04/19/16 10:38 98.2 68 18 132/60 100 Room Air 98.2 Physical Exam PHYSICAL EXAM GENERAL: NAD, Alert HEENT: PERRL, OC/OP NECK: Supple, no JVD, no LN LUNGS: Clear HEART: S1S2, no gallop, no murmur ABD: Soft, NT, no organomegaly, no rebound EXT: No edema, no cyanosis,, rt leg cellulitis improving 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 -f/u PCP on April 14. Cellulitis RLE. -failed OP abx Chronic swelling of legs Obesity Plan Plan of Care Vanc Await GPC ID Leg elevation Local wound care Sed rate 50 d/c on zyvox or doxy if mrsa and sensitive MANUELA NORRIS MD Apr 19, 2016 10:53
[2016-04-19 14:21] VITALS: BP 133/74
[2016-04-19] MEDS ORDERED: CEPH-264 PO (14:58)
[2016-04-19] MEDS ORDERED: CEPH500C PO (15:11)
[2016-04-19] MEDS ORDERED: CEPHALEXIN 250 MG CAPSULE PO SCH (17:00)
== END 2016-04-19 14:00 | disposition home or self-care (01) | DRG 603 ==
LOC: ER 11:45 → 5 SOUTH 13:35
PROVIDERS: ADMIT Internal Medicine; ATTEND Internal Medicine
DX: L03.115 Cellulitis of right lower limb (principal); E66.9 Obesity, unspecified; Z68.39 Body mass index [BMI] 39.0-39.9, adult; E78.00 Pure hypercholesterolemia, unspecified; E78.5 Hyperlipidemia, unspecified; M19.90 Unspecified osteoarthritis, unspecified site; H40.9 Unspecified glaucoma; I10 Essential (primary) hypertension; X58.XXXA Exposure to other specified factors, initial encounter; K21.9 Gastro-esophageal reflux disease without esophagitis; S81.801A Unspecified open wound, right lower leg, initial encounter; Z96.659 Presence of unspecified artificial knee joint; Z98.84 Bariatric surgery status; Z90.49 Acquired absence of other specified parts of digestive tract; Z90.710 Acquired absence of both cervix and uterus; Z83.3 Family history of diabetes mellitus; Z85.42 Personal history of malignant neoplasm of other parts of uterus; Y93.89 Activity, other specified; Y92.89 Other specified places as the place of occurrence of the external cause
CPT/HCPCS: 36415; 80048; 80202; 85027; 85651; 87071; 87075; 87205; 99285; J0696; J3370; J7030; J7040